=== PATIENT | male | born 1935 | race Caucasian/White ===

== ENCOUNTER 2017-03-29 23:10 | Observation (INO) | payer OTHER ==
[~2017-03-29] VITALS: Ht 180.3 cm; Wt 92.0 kg
[2017-03-29 23:19] VITALS: BP 190/78; PULSE 63; RESP 20; O2SAT 97
[2017-03-29] MEDS ORDERED: AMLO5TAB2 PO (23:28)
[2017-03-29] MEDS ORDERED: VALS320T6 PO (23:28)
[2017-03-29] MEDS ORDERED: CLON0.1T PO (23:29)
[2017-03-29] MEDS ORDERED: ATOR40TA16 PO (23:29)
[2017-03-29] MEDS ORDERED: OMEP20TA93 PO (23:29)
[2017-03-29] MEDS ORDERED: SODIUM CHLORIDE 0.9% FLUSH 10 ML FLUSH IVF PRN (23:30)
[2017-03-29] MEDS ORDERED: ALUMINUM/MAGNESIUM/SIMETH 30 ML CUP PO ONE (23:30)
[2017-03-29] MEDS ORDERED: LIDOCAINE VISCOUS 2% SOLN 15 ML UDC PO ONE (23:30)
[2017-03-29] MEDS ORDERED: FAMOTIDINE 20 MG/2 ML VIAL IV PUSH ONE (23:30)
[2017-03-29] MEDS ORDERED: ONDANSETRON HCL 4 MG/2 ML VIAL IVP ONE (23:30)
[2017-03-29] MEDS ORDERED: MORPHINE SULFATE 4 MG/ML INJ IV PUSH ONE (23:30)
[2017-03-29 23:55] VITALS: BP 169/70
[2017-03-29 23:56] VITALS: O2SAT 98
--- NOTE | 2017-03-29 23:57 | RADRPT ---
EXAM DATE/TIME: 03/29/2017 23:35 [facility] COMPARISON: No previous studies available for comparison. INDICATIONS : Shortness of breath, chest pain to medial chest. MEDICAL HISTORY : None. SURGICAL HISTORY : None. ENCOUNTER: Initial ACUITY: 1 day PAIN SCORE: 0/10 LOCATION: Bilateral chest FINDINGS: A single view of the chest demonstrates the lungs to be symmetrically aerated without evidence of mas s, infiltrate or effusion. The cardiomediastinal contours are unremarkable. Osseous structures are intact. CONCLUSION: Normal examination. Rick Cabrales MD on March 29, 2017 at 23:55 Board Certified Radiologist. This report was verified electronically.
[2017-03-30] VITALS (9 sets, daily range): BP systolic 107–166; BP diastolic 54–79; PULSE 64–82; RESP 18–20; TEMP 97.3–99; O2SAT 93–98
[2017-03-30 00:04] LABS: AUTOMATED NEUTROPHIL # 14.5 TH/MM3 (1.8-7.7); BASOPHIL # 0.1 TH/MM3 (0-0.2); BASOPHIL % 0.6 % (0.0-2.0); EOSINOPHIL # 1.8 TH/MM3 (0-0.4); EOSINOPHIL % 8.7 % (0.0-4.0); HEMATOCRIT 42.5 % (39.0-51.0); HEMO FLAGS DIFF FINAL; LYMPH % 8.9 % (9.0-44.0); LYMPHOCYTE # 1.8 TH/MM3 (1.0-4.8); MEAN CELL VOLUME 90.1 FL (80.0-100.0); MEAN CORPUSCULAR HEMOGLOBIN 30.7 PG (27.0-34.0); MONO % 10.6 % (0.0-8.0); NEUT % 71.2 % (16.0-70.0); PLATELET COUNT 193 TH/MM3 (150-450); RED BLOOD COUNT 4.71 MIL/MM3 (4.50-5.90); RED CELL DISTRIBUTION WIDTH 13.7 % (11.6-17.2); WHITE BLOOD COUNT 20.3 TH/MM3 (4.0-11.0)
[2017-03-30 00:16] LABS: APTT (PATIENT) 28.2 SEC (24.3-30.1); PROTHROMBIN TIME - PATIENT 11.2 SEC (9.8-11.6)
[2017-03-30 00:18] LABS: ALT (GPT) 20 U/L (12-78); ANION GAP 10 MEQ/L (5-15); AST (GOT) 15 U/L (15-37); BLOOD UREA NITROGEN 23 MG/DL (7-18); CHLORIDE 103 MEQ/L (98-107); GLOMERULAR FILTRATION RATE 46 ML/MIN (>89); POTASSIUM 4.1 MEQ/L (3.5-5.1); SODIUM (NA) 137 MEQ/L (136-145)
[2017-03-30 00:22] LABS: ALKALINE PHOSPHATASE 92 U/L (45-117); CREATINE KINASE 55 U/L (39-308); TOTAL BILIRUBIN ADULT 1.3 MG/DL (0.2-1.0)
[2017-03-30] MEDS ORDERED: MORPHINE SULFATE 4 MG/ML INJ IV PUSH ONE (00:45)
[2017-03-30] MEDS ORDERED: IOHEXOL 350 MG/ML 10 ML VIAL (for RAD DIAG) IVCONTRAST ONE (01:05)
--- NOTE | 2017-03-30 01:37 | RADRPT ---
EXAM DATE/TIME: 03/30/2017 01:03 [facility] COMPARISON: No previous studies available for comparison. INDICATIONS : Abdomen pain. IV CONTRAST: 95 cc Omnipaque 300 (iohexol) IV ORAL CONTRAST: No oral contrast ingested. RADIATION DOSE: 16.16 CTDIvol (mGy) MEDICAL HISTORY : Cardiovascular disease. Hypertension. Carcinoma, prostate. SURGICAL HISTORY : Carotid stent. Appendectomy.Prostatectomy. ENCOUNTER: Initial ACUITY: 1 day PAIN SCALE: 10/10 LOCATION: abdomen TECHNIQUE: Volumetric scanning of the abdomen and pelvis was performed. Using automated exposure control and ad justment of the mA and/or kV according to patient size, radiation dose was kept as low as reasonably achievable to obtain optimal diagnostic quality images. DICOM format image data is available electro nically for review and comparison. FINDINGS: LOWER LUNGS: There is interstitial disease of the lower lungs. There is a calcified granuloma in the right base. LIVER: Homogeneous density. There are few calcified granulomas seen in the liver. There is no dilation of t he biliary tree. There are several focal densities within the gallbladder concerning for possible gal lstones. SPLEEN: There are several small calcified granulomas. PANCREAS: Within normal limits. KIDNEYS: Normal in size and shape. There is no mass, stone or hydronephrosis. ADRENAL GLANDS: There is a 1.9 cm mass seen at the lateral limb of the left adrenal gland. The right adrenal gland is normal. VASCULAR: There is a 3.7 cm infrarenal focal abdominal aortic aneurysm. Atherosclerotic calcifications are seen throughout. BOWEL/MESENTERY: Colonic diverticula are seen throughout. Significant inflammatory change is not clearly seen. There i s thickening in the sigmoid region which may be related to hypertrophy. ABDOMINAL WALL: Within normal limits. RETROPERITONEUM: There is no lymphadenopathy. The patient is status post pelvic lymph node resection. BLADDER: No wall thickening or mass. REPRODUCTIVE: The patient is status post prostatectomy. INGUINAL: There is no lymphadenopathy or hernia. MUSCULOSKELETAL: There is degenerative change in the lumbar spine. CONCLUSION: 1. No acute abnormality seen. 2. Numerous colonic diverticula. There is some thickening in the sigmoid region which may be secondar y to hypertrophy. Surrounding inflammatory changes not seen. 3. Status post prostatectomy. 4. Multiple focal areas of density within the gallbladder concerning for possible gallstones. 5. 1.9 cm left adrenal gland mass. This is nonspecific. Statistically, it likely representing an mel dian. 6. 3.7 cm focal abdominal aortic aneurysm. Rick Cabrales MD on March 30, 2017 at 1:23 Board Certified Radiologist. This report was verified electronically.
--- NOTE | 2017-03-30 02:58 | RADRPT ---
EXAM DATE/TIME: 03/30/2017 02:21 [facility] COMPARISON: CT ABDOMEN & PELVIS W CONTRAST, March 30, 2017, 1:03. INDICATIONS : Right upper quadrant pain. MEDICAL HISTORY : Hypercholesterolemia. Hypertension. Gastroesophageal reflux disease. hearing aids. SURGICAL HISTORY : Appendectomy. Cardiac stent. Prostatectomy. ENCOUNTER: Initial ACUITY: 1 day PAIN SCORE: 2/10 LOCATION: Right upper quadrant MEASUREMENTS: LIVER: 18.7 cm length COMMON DUCT: 5 mm RIGHT KIDNEY: 11.3 x 4.8 x 5.9 cm FINDINGS: LIVER: Normal echotexture without focal lesion or ductal dilatation. COMMON DUCT: No intraluminal mass or stone visualized. GALLBLADDER: Multiple gallstones are seen measuring up to 0.8 cm. Gallbladder wall is borderline thickened. The te chnologist reports a negative sonographic Gregory's sign. PANCREAS: The visualized portions are within normal limits. RIGHT KIDNEY: No evidence of hydronephrosis, stone, or mass. CONCLUSION: Cholelithiasis. Gallbladder wall is borderline thickened. This can be correlated with any clinical or laboratory findings of cholecystitis. Rick Cabrales MD on March 30, 2017 at 2:54 Board Certified Radiologist. This report was verified electronically.
--- NOTE | 2017-03-30 03:13 | PD ---
HPI Chief Complaint: Abdominal Pain Time Seen by Provider: 23:27 Travel History International Travel<30 days: No Contact w/Intl Traveler<30days: No Traveled to known affect area: No History of Present Illness HPI Patient is a 81-year-old male comes in complaining of chest pain. Says the pain is substernal and in the epigastric area. He says he has been belching a lot. The pain came on this evening. He says that he feels like he cannot take a deep breath. He said some nausea but no vomiting. He does have history of GERD, but says that this feels different. He was given aspirin and nitroglycerin by EMS. He says the nitroglycerin did not help. He denies fever or chills. He says the pain does not radiate. He does have history of 2 stents in the past. PFSH Past Medical History Cancer: Yes (prostate removal ) High Cholesterol: Yes Diminished Hearing: Yes (hearing aids ) Gastrointestinal Disorders: Yes (gerd) Hypertension: Yes Tetanus Vaccination: < 5 Years Influenza Vaccination: No Past Surgical History Appendectomy: Yes (1955) Cardiac Surgery: Yes (stent 2003) Social History Alcohol Use: No Tobacco Use: No Substance Use: No Allergies-Medications (Allergen,Severity, Reaction): Coded Allergies: No Known Allergies (Verified Allergy, Unknown, 03/29/17) Reported Meds & Prescriptions Reported Meds & Active Scripts Active Reported Atorvastatin (Atorvastatin Calcium) 40 Mg Tab 40 Mg PO HS Clonidine (Clonidine HCl) 0.1 Mg Tab 0.1 Mg PO BID Omeprazole 20 Mg Tab 20 Mg PO DAILY Valsartan-Hydrochlorothiazide 320-25 Mg Tab 1 Tab PO DAILY Amlodipine (Amlodipine Besylate) 5 Mg Tab 5 Mg PO DAILY Review of Systems Except as stated in HPI: all other systems reviewed are Neg General / Constitutional: No: Fever, Chills HENT: No: Headaches, Lightheadedness Cardiovascular: Positive: Chest Pain or Discomfort Respiratory: Positive: Shortness of Breath Gastrointestinal: Positive: Nausea, Abdominal Pain Musculoskeletal: No: Myalgias, Edema Skin: No Rash, No Change in Pigmentation Neurologic: No: Weakness, Dizziness Physical Exam Narrative GENERAL: Awake and alert, in no acute distress. SKIN: Focused skin assessment warm/dry. HEAD: Atraumatic. Normocephalic. EYES: Pupils equal and round. No scleral icterus. ENT: Mucous membranes pink and moist. NECK: Trachea midline. No JVD. CARDIOVASCULAR: Regular rate and rhythm. No murmur appreciated. RESPIRATORY: No accessory muscle use. Clear to auscultation. Breath sounds equal bilaterally. GASTROINTESTINAL: Abdomen soft, nondistended. Tender to palpation of the mid epigastric area. No rebound or guarding. MUSCULOSKELETAL: No obvious deformities. No clubbing. No cyanosis. No edema. NEUROLOGICAL: Awake and alert. No obvious cranial nerve deficits. Motor grossly within normal limits. Normal speech. PSYCHIATRIC: Appropriate mood and affect; insight and judgment normal. Data Data Last Documented VS Vital Signs Date Time Temp Pulse Resp B/P (MAP) Pulse Ox O2 Delivery O2 Flow Rate FiO2 03/30/17 01:29 166/79 (108) 157/70 (99) 03/29/17 23:56 98 Nasal Cannula 2.00 03/29/17 23:19 63 20 Orders Orders Ckmb (Isoenzyme) Profile (03/29/17 23:27) Complete Blood Count With Diff (03/29/17 23:27) Comprehensive Metabolic Panel (03/29/17 23:27) Prothrombin Time / Inr (Pt) (03/29/17 23:27) Act Partial Throm Time (Ptt) (03/29/17 23:27) Troponin I (03/29/17 23:27) Lipase (03/29/17 23:27) Chest, Single Ap (03/29/17 23:27) Ecg Monitoring (03/29/17 23:27) Bilateral Bp Monitoring (03/29/17 23:27) Iv Access Insert/Monitor (03/29/17 23:27) Oximetry (03/29/17 23:27) Oxygen Administration (03/29/17 23:27) Sodium Chloride 0.9% Flush (Ns Flush) (03/29/17 23:30) Morphine Inj (Morphine Inj) (03/29/17 23:30) Ondansetron Inj (Zofran Inj) (03/29/17 23:30) Famotidine Inj (Pepcid Inj) (03/29/17 23:30) Al-Mag Hy-Si 40-40-4 Mg/Ml Liq (Mag-Al P (03/29/17 23:30) Lidocaine 2% Viscous (Xylocaine 2% Visco (03/29/17 23:30) Ct Abd/Pel W Iv Contrast(Rout) (03/30/17 ) Morphine Inj (Morphine Inj) (03/30/17 00:45) Iohexol 350 Inj (Omnipaque 350 Inj) (03/30/17 01:05) Us Abdomen Gallbladder (03/30/17 ) Al-Mag Hy-Si 40-40-4 Mg/Ml Liq (Mag-Al P (03/30/17 03:15) Lidocaine 2% Viscous (Xylocaine 2% Visco (03/30/17 03:15) Activity Bed Rest With Brp (03/30/17 03:09) Vital Signs (Adult) Q4H (03/30/17 03:09) Cardiac Rhythm .As Directed (03/30/17 03:09) Notify Dr: Other .PRN (03/30/17 03:09) Notify Dr. Parameters (03/30/17 03:09) Resp Oxygen Nasal Cannula (03/30/17 ) Diet Heart Healthy (03/30/17 Breakfast) Ckmb (Isoenzyme) Profile (03/30/17 03:09) Ckmb (Isoenzyme) Profile (03/30/17 06:09) Troponin I (03/30/17 03:09) Troponin I (03/30/17 06:09) Electrocardiogram (03/30/17 03:09) Electrocardiogram (03/30/17 06:09) ^ Obtain (03/30/17 03:09) Sodium Chloride 0.9% Flush (Ns Flush) (03/30/17 03:15) Sodium Chloride 0.9% Flush (Ns Flush) (03/30/17 09:00) Famotidine (Pepcid) (03/30/17 09:00) Shingle Trimmer / Telemetry [id number].[id number] (03/30/17 03:09) Admit Order (Ed Use Only) (03/30/17 ) Labs Laboratory Tests Test 03/29/17 23:45 White Blood Count 20.3 TH/MM3 Red Blood Count 4.71 MIL/MM3 Hemoglobin 14.5 GM/DL Hematocrit 42.5 % Mean Corpuscular Volume 90.1 FL Mean Corpuscular Hemoglobin 30.7 PG Mean Corpuscular Hemoglobin Concent 34.0 % Red Cell Distribution Width 13.7 % Platelet Count 193 TH/MM3 Mean Platelet Volume 9.5 FL Neutrophils (%) (Auto) 71.2 % Lymphocytes (%) (Auto) 8.9 % Monocytes (%) (Auto) 10.6 % Eosinophils (%) (Auto) 8.7 % Basophils (%) (Auto) 0.6 % Neutrophils # (Auto) 14.5 TH/MM3 Lymphocytes # (Auto) 1.8 TH/MM3 Monocytes # (Auto) 2.1 TH/MM3 Eosinophils # (Auto) 1.8 TH/MM3 Basophils # (Auto) 0.1 TH/MM3 CBC Comment DIFF FINAL Differential Comment Prothrombin Time 11.2 SEC Prothromb Time International Ratio 1.0 RATIO Activated Partial Thromboplast Time 28.2 SEC Blood Urea Nitrogen 23 MG/DL Creatinine 1.46 MG/DL Random Glucose 176 MG/DL Total Protein 7.0 GM/DL Albumin 3.9 GM/DL Calcium Level 8.5 MG/DL Alkaline Phosphatase 92 U/L Aspartate Amino Transf (AST/SGOT) 15 U/L Alanine Aminotransferase (ALT/SGPT) 20 U/L Total Bilirubin 1.3 MG/DL Sodium Level 137 MEQ/L Potassium Level 4.1 MEQ/L Chloride Level 103 MEQ/L Carbon Dioxide Level 24.0 MEQ/L Anion Gap 10 MEQ/L Estimat Glomerular Filtration Rate 46 ML/MIN Total Creatine Kinase 55 U/L Troponin I LESS THAN 0.02 NG/ML Lipase 128 U/L MDM Medical Decision Making Medical Screen Exam Complete: Yes Emergency Medical Condition: Yes Interpretation(s) ECG shows sinus bradycardia at 57, no ST elevation or depression, normal intervals Differential Diagnosis Gastritis versus ACS versus NSTEMI versus STEMI Narrative Course Patient is an 81-year-old male comes in complaining of chest pain. Exam shows some mild epigastric tenderness. IV established, labs sent. Labs show an elevated white blood cell count to 20. CT abdomen and pelvis performed shows gallstones. Ultrasound of the gallbladder also shows gallstones, unlikely cholecystitis. Patient was given morphine, IV fluids. Given a GI cocktail. Based on patient's cardiac history and description that this pain is different than his GERD pain, believe patient will benefit from an ACS workup. He'll be placed in the chest pain center. Diagnosis Primary Impression: Chest pain Qualified Codes: R07.9 - Chest pain, unspecified Admitting Information Admitting Physician Requests: Observation Lroene Mendosa MD Mar 30, 2017 03:13
[2017-03-30] MEDS ORDERED: LIDOCAINE VISCOUS 2% SOLN 15 ML UDC PO ONE (03:15)
[2017-03-30] MEDS ORDERED: SODIUM CHLORIDE 0.9% FLUSH 10 ML FLUSH IV FLUSH PRN ×2 (03:15→08:15)
[2017-03-30] MEDS ORDERED: ALUMINUM/MAGNESIUM/SIMETH 30 ML CUP PO ONE (03:15)
[2017-03-30 05:35] LABS: CREATINE KINASE 54 U/L (39-308)
--- NOTE | 2017-03-30 08:11 | HHI.HP ---
HPI Primary Care Physician Rick Davenport M.D. Chief Complaint Epigastric pain History of Present Illness 81-year-old male with history of hypertension, hyperlipidemia, and GERD presents to emergency room for further evaluation epigastric discomfort. Onset last evening 6 PM. Location epigastric area described as a "stabbing pain. Severity 10/10. No radiation initially, but states early this morning pain began to radiated to right upper quadrant. Associated symptoms diaphoresis and hurting to take a deep breath. Reports shallow breathing due to discomfort around breathing. Denied nausea, vomiting, or diarrhea. No known precipitating or relieving factors. Currently pain rated 1-2/10. Denies similar pain in the past. Last meal prior to discomfort 1630 which included chili, crackers, and coffee. Review of Systems General: No fatigue,weakness, fever, chills, or recent illness. Has been in his general state of health. HEENT: No headache or dysphasia CV: No CP, pressure, palpitations, or dizziness. History of times one cardiac stent. Denies cardiac pain prior to stent placement stating blockage was found on nuclear stress test. RESP: No SOB, cough, wheeze, or recent URI. When taking a deep breath epigastric pain made worse. GI: No nausea, vomiting, bowel changes, diarrhea, constipation, pain, or distention. No unintentional weight gain or weight loss. Right upper quadrant tender with palpation. : No dysuria EXT: No lower leg edema MS: No discomfort or change in ROM NEURO: No change in memory, difficulty with balance, LOC, motor/sensory deficits PSYCH: No anxiety or depression. SKIN: No rashes, no concerning lesions Past Family Social History Allergies: Coded Allergies: No Known Allergies (Verified Allergy, Unknown, 03/29/17) Past Medical History Hypertension, hyperlipidemia, GERD, x1 cardiac stent, prostate cancer (treated surgical, no radiation required) Past Surgical History Prostatectomy (early ), appendectomy (1954) Reported Medications Reported Meds & Active Scripts Active Reported Atorvastatin (Atorvastatin Calcium) 40 Mg Tab 40 Mg PO HS Clonidine (Clonidine HCl) 0.1 Mg Tab 0.1 Mg PO PRN (Used only once-instructed to take for sbp greater than 160) Omeprazole 20 Mg Tab 20 Mg PO DAILY Valsartan-Hydrochlorothiazide 320-25 Mg Tab 1 Tab PO DAILY Amlodipine (Amlodipine Besylate) 5 Mg Tab 5 Mg PO DAILY Active Ordered Medications Current Medications Medications (Trade) Dose Ordered Sig/Tenzin Route Start Time Stop Time Status Last Admin (NS Flush) 2 ml UNSCH PRN IV FLUSH 03/30/17 03:15 (NS Flush) 2 ml BID IV FLUSH 03/30/17 09:00 (Pepcid) 20 mg BID PO 03/30/17 09:00 (Flu (Quadrivalent) Vaccine Inj) 0.5 ml ONCE ONCE IM 03/31/17 10:00 03/31/17 10:01 Social History Known Johnny artery disease, hypertension and hyperlipidemia. No known diabetes. Quit smoking 25 years ago. Denies any alcohol. Endorses an active lifestyle walking 1 mile/twice daily. Also hikes 5-8 miles daily in the fall when traveling to [place]. Past cardiac testing Nuclear stress test 5 years ago. Patient equity research associate is Dr. Sewell. Seen Dr. Sewell January, completed bilateral carotid ultrasound, aorta and cardiac ultrasound all reported to be normal. x1 cardiac stent placed reportedly after an abnormal cardiac stress test. Physical Exam Vital Signs Vital Signs Date Time Temp Pulse Resp B/P (MAP) Pulse Ox O2 Delivery O2 Flow Rate FiO2 03/30/17 07:32 99.0 77 18 153/68 (96) 95 03/30/17 06:10 98.7 82 18 158/69 (98) 94 03/30/17 04:09 03/30/17 03:46 98 03/30/17 01:29 166/79 (108) 157/70 (99) 03/29/17 23:56 98 Nasal Cannula 2.00 03/29/17 23:55 169/70 (103) 03/29/17 23:55 98 Nasal Cannula 2.00 03/29/17 23:19 63 20 190/78 (115) 97 Room Air Physical Exam GENERAL: Alert WN, WD, NAD, pleasant, male HEAD: NC, AT EYES: Sclera clear, conjunctiva without injection, pupils equal and round ENT: Mucous membranes pink and moist CV: RRR, 2/6 systolic murmur, no rub, gallop, or JVD, S1-S2 no S3-S4. RESP: Clear lungs throughout bilateral, no crackles, wheeze, rhonchi, symmetrical chest rise, nonlabored, able to speak in full sentences ABD: right upper quad tender with palpation with some guarding of area. Epigastric area nontender with palpation. Soft, ND, positive bowel tones EXT: Pulses +24, no dependent edema MS: Normal tone 4 extremities, no obvious deformities, full range of motion NEURO: CN II through CN XII grossly intact, motor strength 5/5 PSYCH: A+O 3, pleasant affect, appropriate speech, mood, insight and judgment SKIN: Normal turgor, normal texture, no lesions, no rashes, brisk cap refill, even hair distribution Laboratory Laboratory Tests Test 03/29/17 23:45 03/30/17 04:40 03/30/17 07:30 White Blood Count 20.3 Red Blood Count 4.71 Hemoglobin 14.5 Hematocrit 42.5 Mean Corpuscular Volume 90.1 Mean Corpuscular Hemoglobin 30.7 Mean Corpuscular Hemoglobin Concent 34.0 Red Cell Distribution Width 13.7 Platelet Count 193 Mean Platelet Volume 9.5 Neutrophils (%) (Auto) 71.2 Lymphocytes (%) (Auto) 8.9 Monocytes (%) (Auto) 10.6 Eosinophils (%) (Auto) 8.7 Basophils (%) (Auto) 0.6 Neutrophils # (Auto) 14.5 Lymphocytes # (Auto) 1.8 Monocytes # (Auto) 2.1 Eosinophils # (Auto) 1.8 Basophils # (Auto) 0.1 CBC Comment DIFF FINAL Differential Comment Prothrombin Time 11.2 Prothromb Time International Ratio 1.0 Activated Partial Thromboplast Time 28.2 Blood Urea Nitrogen 23 Creatinine 1.46 Random Glucose 176 Total Protein 7.0 Albumin 3.9 Calcium Level 8.5 Alkaline Phosphatase 92 Aspartate Amino Transf (AST/SGOT) 15 Alanine Aminotransferase (ALT/SGPT) 20 Total Bilirubin 1.3 Sodium Level 137 Potassium Level 4.1 Chloride Level 103 Carbon Dioxide Level 24.0 Anion Gap 10 Estimat Glomerular Filtration Rate 46 Total Creatine Kinase 55 54 Troponin I LESS THAN 0.02 LESS THAN 0.02 Lipase 128 Result Diagram: 03/29/17234403/29/172344 Imaging Reading interpreted by radiologist. Chest xray-Normal examination. CT abd/pelvis-Conclusion: 1. No acute abnormality seen. 2. Numerous colonic diverticula. There is some thickening in the sigmoid region which may be secondary to hypertrophy. Surrounding inflammatory changes not seen. 3. Statu post prostatectomy. 4. Multiple focal areas of density within the gallbladder concerning for possible gallstones. 5. 1.9cm left adrenal mass. This is nonspecific. Statistically, it is likely representing an adenoma. 6. 3.7cm focal abdominal aortic aneurysm. Gallbladder ultrasound-Cholelithiasis. Gallbladder wall borderline thickened. Could be correlated with any clinical or lab of cholecystitis. Course EKG NSB, normal axis, no st t segment changes Caprini VTE Risk Assessment Caprini VTE Risk Assessment: Mod/High Risk (score >= 2) Caprini Risk Assessment Model Point Value = 1 Point Value = 2 Point Value = 3 Point Value = 5 Age 41-60 Minor surgery BMI > 25 kg/m2 Swollen legs Varicose veins or History of unexplained or recurrent spontaneous Oral contraceptives or hormone replacement Sepsis (< 1 month) Serious lung disease, including pneumonia (< 1 month) Abnormal pulmonary function Acute myocardial infarction Congestive heart failure (< 1 month) History of inflammatory bowel disease Medical patient at bed rest Age 61-74 Arthroscopic surgery Major open surgery (> 45 min) Laparoscopic surgery (> 45 min) Malignancy Confined to bed (> 72 hours) Immobilizing plaster cast Central venous access Age >= 75 History of VTE Family history of VTE Factor V Leiden Prothrombin [id number] Lupus anticoagulant Anticardiolipin antibodies Elevated serum homocysteine Heparin-induced thrombocytopenia Other congenital or acquired thrombophilia Stroke (< 1 month) Elective arthroplasty Hip, pelvis, or leg fracture Acute spinal cord injury (< 1 month) Prophylaxis Regimen Total Risk Factor Score Risk Level Prophylaxis Regimen 0-1 Low Early ambulation 2 Moderate Order ONE of the following: *Sequential Compression Device (SCD) *Heparin 5000 units SQ BID 3-4 Higher Order ONE of the following medications: *Heparin 5000 units SQ TID *Enoxaparin/Lovenox 40 mg SQ daily (WT < 150 kg, CrCl > 30 mL/min) *Enoxaparin/Lovenox 30 mg SQ daily (WT < 150 kg, CrCl > 10-29 mL/min) *Enoxaparin/Lovenox 30 mg SQ BID (WT < 150 kg, CrCl > 30 mL/min) AND/OR *Sequential Compression Device (SCD) 5 or more Highest Order ONE of the following medications: *Heparin 5000 units SQ TID (Preferred with Epidurals) *Enoxaparin/Lovenox 40 mg SQ daily (WT < 150 kg, CrCl > 30 mL/min) *Enoxaparin/Lovenox 30 mg SQ daily (WT < 150 kg, CrCl > 10-29 mL/min) *Enoxaparin/Lovenox 30 mg SQ BID (WT < 150 kg, CrCl > 30 mL/min) AND *Sequential Compression Device (SCD) Assessment and Plan Assessment and Plan #1 Cholelithiasis/epigastric pain-admitted to chest pain center. Ruled out with 3 sets of EKGs, cardiac enzymes, and monitored overnight. Seen and evaluated by Dr. Erik Ying. Denies ever having any chest pain, only epigastric pain. Right upper quad tender with palpation. Dr. Ying recommends surgical consult to speak with patient regarding gallstones. No further cardiac testing required at this time. Discussed with patient plan of care will be determined by surgical physician recommendation. Patient agreeable to plan of care. #2 History of CAD-continue atorvastatin and amlodipine #3 Hypertension-continue to need to monitor, continue valsartan/HCTZ #4 GERD-continue omeprazole 14:45 Plans for laparoscopic cholecystomy this afternoon at 3pm. Consult hospitalist for medical management as requested by surgeon. Elaine Cantu Mar 30, 2017 08:10
[2017-03-30] MEDS ORDERED: NITROGLYCERIN 0.4 MG SL 25 TABS/BTL SL PRN (08:15)
[2017-03-30] MEDS ORDERED: ACETAMINOPHEN 500 MG CPLT PO PRN (08:15)
[2017-03-30] MEDS ORDERED: ONDANSETRON HCL 4 MG/2 ML VIAL IV PUSH PRN (08:15)
[2017-03-30 08:39] LABS: CREATINE KINASE 37 U/L (39-308)
[2017-03-30] MEDS ORDERED: FAMOTIDINE 20 MG TAB PO SCH (09:00)
[2017-03-30] MEDS ORDERED: SODIUM CHLORIDE 0.9% FLUSH 10 ML FLUSH IV FLUSH SCH (09:00)
[2017-03-30] MEDS: PANTOPRAZOLE SOD 20 MG DELAYED RELEASE TAB PO SCH (09:00)
[2017-03-30] MEDS: HYDROCHLOROTHIAZIDE 25 MG TAB PO SCH (09:02)
[2017-03-30] MEDS: amLODIPine BESYLATE 5 MG TAB PO SCH (09:02)
[2017-03-30] MEDS: SODIUM CHLORIDE 0.9% FLUSH 10 ML FLUSH IV FLUSH SCH ×2 (09:03→20:24)
[2017-03-30] MEDS: VALSARTAN 160 MG TAB PO SCH (09:03)
[2017-03-30] MEDS: ASPIRIN 325 MG TAB PO SCH (09:03)
--- NOTE | 2017-03-30 10:20 | PD.CONS ---
cc: Brandon Brock MD [facility] Service CONSULTATION NOTE FOR SURGICAL ATTENDING, DR. BRANDON BROCK General Surgery Consult Requested By Dr. Ying Reason for Consult Evaluation of cholelithiasis Primary Care Physician Rick Davenport M.D. History of Present Illness This is an 81-year-old male with a past medical history of GERD, hypercholesterolemia and hypertension. The patient was watching football on television yesterday afternoon when he developed a sudden onset of substernal and epigastric chest pain. The patient states that he took his blood pressure which showed a systolic blood pressure in the 160s. He has been instructed by his physician to take 1 tablet of clonidine when this occurs. He took the clonidine and rechecked his blood pressure about an hour and half later. The patient's systolic blood pressure was now in the 180s. He had no resolution of his chest pain and decided to call 911 and his son. The patient was brought to the emergency department and given a GI cocktail. The patient's chest pain resolved but he noticed he had a right upper quadrant abdominal pain. He reports this is the worst pain he has ever had. A CT abdomen and pelvis was obtained which shows cholelithiasis. A gallbladder ultrasound was obtained which shows cholelithiasis and gallbladder wall thickening. The patient does have an elevated white blood cell count of 20.3. The patient's total bilirubin is also mildly elevated at 1.3. A General Surgery consultation has been requested for evaluation of cholelithiasis. Review of Systems Constitutional: DENIES: Fatigue, Change in appetite Endocrine: DENIES: Polydipsia, Polyuria, Polyphagia Eyes: DENIES: Diplopia Ears, nose, mouth, throat: DENIES: Hearing loss Respiratory: DENIES: Cough Cardiovascular: COMPLAINS OF: Chest pain, Dyspnea on Exertion Gastrointestinal: COMPLAINS OF: Abdominal pain, DENIES: Nausea, Vomiting Genitourinary: DENIES: Urgency Musculoskeletal: DENIES: Joint pain Integumentary: DENIES: Abnormal pigmentation Hematologic/lymphatic: DENIES: Bruising Immunologic/allergic: DENIES: Eczema Neurologic: DENIES: Abnormal gait, Headache Psychiatric: DENIES: Confusion, Mood changes, Depression Past Family Social History Past Medical History GERD Hypercholesterolemia Hypertension Prostate cancer Past Surgical History Open appendectomy in the 1950s Cardiac stent placement in 2003 Prostate removal Reported Medications Atorvastin Clonidine Amlodipine Valsartan-hydrochlorothiazide Omeprazole Allergies: Coded Allergies: No Known Allergies (Verified Allergy, Unknown, 03/29/17) Active Ordered Medications Current Medications Medications (Trade) Dose Ordered Sig/Tenzin Route Start Time Stop Time Status Last Admin (Pepcid) 20 mg BID PO 03/30/17 09:00 03/30/17 09:02 (Flu (Quadrivalent) Vaccine Inj) 0.5 ml ONCE ONCE IM 03/31/17 10:00 03/31/17 10:01 (NS Flush) 2 ml UNSCH PRN IV FLUSH 03/30/17 08:15 (NS Flush) 2 ml BID IV FLUSH 03/30/17 09:00 03/30/17 09:03 (Tylenol) 500 mg Q4H PRN PO 03/30/17 08:15 (Zofran Inj) 4 mg Q6H PRN IV PUSH 03/30/17 08:15 (Nitrostat Sl) 0.4 mg Q5M PRN SL 03/30/17 08:15 (Aspirin) 325 mg DAILY PO 03/30/17 09:00 03/30/17 09:03 (Norvasc) 5 mg DAILY PO 03/30/17 09:00 03/30/17 09:02 (Lipitor) 40 mg HS PO 03/30/17 21:00 (Protonix) 20 mg DAILY PO 03/30/17 09:00 03/30/17 09:00 (Diovan) 320 mg DAILY PO 03/30/17 09:00 03/30/17 09:03 (Hydrodiuril) 25 mg DAILY PO 03/30/17 09:00 03/30/17 09:02 Family History Noncontributory Social History Denies tobacco Denies EtOH use Denies illicit drug use Works part-time at [employer]. Physical Exam Vital Signs Vital Signs Date Time Temp Pulse Resp B/P (MAP) Pulse Ox O2 Delivery O2 Flow Rate FiO2 03/30/17 08:36 96 21 03/30/17 07:32 99.0 77 18 153/68 (96) 95 03/30/17 06:10 98.7 82 18 158/69 (98) 94 03/30/17 04:09 03/30/17 03:46 98 03/30/17 01:29 166/79 (108) 157/70 (99) 03/29/17 23:56 98 Nasal Cannula 2.00 03/29/17 23:55 169/70 (103) 03/29/17 23:55 98 Nasal Cannula 2.00 03/29/17 23:19 63 20 190/78 (115) 97 Room Air Physical Exam GENERAL: Pleasant 81 year old male resting in bed in no acute distress. SKIN: Warm and dry. HEAD: Atraumatic. Normocephalic. EYES: Pupils equal and round. No scleral icterus. No injection or drainage. ENT: No nasal bleeding or discharge. Mucous membranes pink and moist. NECK: Trachea midline. CARDIOVASCULAR: Regular rate and rhythm. RESPIRATORY: No accessory muscle use. Clear to auscultation. Breath sounds equal bilaterally. GASTROINTESTINAL: Abdomen soft, nondistended. RLQ scar and midline abdominal scar well healed. RUQ tenderness with palpation. MUSCULOSKELETAL: Extremities without clubbing, cyanosis, or edema. No obvious deformities. NEUROLOGICAL: Awake and alert. No obvious cranial nerve deficits. Motor grossly within normal limits. Five out of 5 muscle strength in the arms and legs. Normal speech. PSYCHIATRIC: Appropriate mood and affect; insight and judgment normal. Laboratory Laboratory Tests Test 03/29/17 23:45 03/30/17 04:40 03/30/17 07:30 White Blood Count 20.3 Red Blood Count 4.71 Hemoglobin 14.5 Hematocrit 42.5 Mean Corpuscular Volume 90.1 Mean Corpuscular Hemoglobin 30.7 Mean Corpuscular Hemoglobin Concent 34.0 Red Cell Distribution Width 13.7 Platelet Count 193 Mean Platelet Volume 9.5 Neutrophils (%) (Auto) 71.2 Lymphocytes (%) (Auto) 8.9 Monocytes (%) (Auto) 10.6 Eosinophils (%) (Auto) 8.7 Basophils (%) (Auto) 0.6 Neutrophils # (Auto) 14.5 Lymphocytes # (Auto) 1.8 Monocytes # (Auto) 2.1 Eosinophils # (Auto) 1.8 Basophils # (Auto) 0.1 CBC Comment DIFF FINAL Differential Comment Prothrombin Time 11.2 Prothromb Time International Ratio 1.0 Activated Partial Thromboplast Time 28.2 Blood Urea Nitrogen 23 Creatinine 1.46 Random Glucose 176 Total Protein 7.0 Albumin 3.9 Calcium Level 8.5 Alkaline Phosphatase 92 Aspartate Amino Transf (AST/SGOT) 15 Alanine Aminotransferase (ALT/SGPT) 20 Total Bilirubin 1.3 Sodium Level 137 Potassium Level 4.1 Chloride Level 103 Carbon Dioxide Level 24.0 Anion Gap 10 Estimat Glomerular Filtration Rate 46 Total Creatine Kinase 55 54 37 Troponin I LESS THAN 0.02 LESS THAN 0.02 LESS THAN 0.02 Lipase 128 Result Diagram: 03/29/17 2345 03/29/17 2345 Imaging Last Impressions Gall Bladder Ultrasound 03/30/17 0000 Signed Impressions: Service Date/Time: Thursday, March 30, 2017 02:21 - CONCLUSION: Cholelithiasis. Gallbladder wall is borderline thickened. This can be correlated with any clinical or laboratory findings of cholecystitis. Rick Cabrales MD Abdomen/Pelvis CT 03/30/17 0000 Signed Impressions: Service Date/Time: Thursday, March 30, 2017 01:03 - CONCLUSION: 1. No acute abnormality seen. 2. Numerous colonic diverticula. There is some thickening in the sigmoid region which may be secondary to hypertrophy. Surrounding inflammatory changes not seen. 3. Status post prostatectomy. 4. Multiple focal areas of density within the gallbladder concerning for possible gallstones. 5. 1.9 cm left adrenal gland mass. This is nonspecific. Statistically, it likely representing an adenoma. 6. 3.7 cm focal abdominal aortic aneurysm. Rick Cabrales MD Chest X-Ray 03/29/17 9520 Signed Impressions: Service Date/Time: Wednesday, March 29, 2017 23:35 - CONCLUSION: Normal examination. Rick Cabrales MD CT abdomen and pelvis--- cholelithiasis Gallbladder ultrasound--cholelithiasis and gallbladder wall thickening Assessment and Plan Problem List: (1) Acute cholecystitis ICD Codes: K81.0 - Acute cholecystitis Status: Acute (2) Right upper quadrant pain ICD Codes: R10.11 - Right upper quadrant pain Status: Acute (3) Abnormal findings on imaging of biliary tract ICD Codes: R93.2 - Abnormal findings on diagnostic imaging of liver and biliary tract Status: Acute (4) Coronary artery disease ICD Codes: I25.10 - Atherosclerotic heart disease of [place] coronary artery without angina pectoris Status: Chronic (5) Gastroesophageal reflux disease ICD Codes: K21.9 - Gastro-esophageal reflux disease without esophagitis Status: Chronic Assessment and Plan 81-year-old male with cholelithiasis; right upper quadrant abdominal pain -Repeat LFTs this AM -NPO -Plan for laparoscopic cholecystomy; possible open; possible intraoperative cholangiogram today with Dr. Calles -Obtain consents -Thank you for this consult; We will continue to follow Discussed Condition With Dr. Vinod Boles Attending Statement CONSULTATION NOTE FOR SURGICAL ATTENDING, DR. BRANDON BROCK Patient has right upper quadrant pain with abnormal imaging of the biliary tree history consistent with biliary colic Arrangements made for cholecystectomy I spoke to the OR to make arrangements My associated Dr. Benji Calles is available to proceed earlier with a cholecystectomy which I discussed with the patient and he understood I agree with above assessment and plan. The exam, history, and the medical decision-making described in the above note were completed with the assistance of the mid-level provider. I reviewed and agree with the findings presented. I attest that I had a [id number] encounter with the patient on the same day, and personally performed and documented my assessment and findings in the medical record. The following services were provided during this hospital visit: Chart data review, vital sign assessments/reviewing monitor data Review of consultations notes if present. Medication orders/review and/or management Ordering and/or reviewing lab tests Ordering and/or interpreting/reviewing x-rays and/or diagnostic studies Care of the patient and discussion of the patient with the care team Documentation time To help prompt me to consider important information that might be impacting today's encounter and assessment, information from prior notes written by myself or my colleagues may have been "brought forward/copy and pasted" into today's note. Lexi Anderson Mar 30, 2017 10:20 Brandon Brock MD Mar 30, 2017 19:27
[2017-03-30 10:28] LABS: INDIRECT BILIRUBIN 0.9 MG/DL (0.0-0.8); TOTAL BILIRUBIN ADULT 1.3 MG/DL (0.2-1.0)
[2017-03-30] MEDS: PIPERACIL-TAZO 3.375 GM PREMIX 50 ML IV SCH ×2 (11:48→20:24)
[2017-03-30] MEDS ORDERED: NEOSTIGMINE 3 MG/3 ML SYR IV ONE (12:00)
[2017-03-30] MEDS ORDERED: LIDOCAINE HCL 1% PF 5 ML SYRINGE OTHER ONE (12:00)
[2017-03-30] MEDS ORDERED: DEXAMETHASONE SOD PHOS 4 MG/ML VIAL IV ONE (12:00)
[2017-03-30] MEDS ORDERED: PROPOFOL 200 MG/20 ML AMP IV ONE (12:00)
[2017-03-30] MEDS ORDERED: LACTATED RINGER'S 1000 ML INJ 1,000 ML IV ONE (12:00)
[2017-03-30] MEDS ORDERED: ROCURONIUM INJ 50 MG/5 ML SYRINGE IV PUSH ONE (12:00)
[2017-03-30] MEDS ORDERED: ONDANSETRON HCL 4 MG/2 ML VIAL IV ONE (12:00)
[2017-03-30] MEDS ORDERED: GLYCOPYRROLATE 1 MG/5 ML SYRINGE IV PUSH ONE (12:00)
[2017-03-30] MEDS ORDERED: PILL SPLITTER OTHER PRN (12:30)
[2017-03-30] MEDS ORDERED: ACETAMINOPHEN 1000 MG/100 ML 100 ML IV ONE (13:34)
[2017-03-30] MEDS ORDERED: BUPIVACAINE/EPINEPHRINE 0.25% PF 30 ML VIAL ONE (14:05)
[2017-03-30] MEDS ORDERED: ENALAPRILAT 1.25 MG/ML VIAL IV PUSH PRN (14:15)
--- NOTE | 2017-03-30 14:15 | PD.CONS ---
HPI Service [facility] Consult Requested By Primary Care Physician Rick Davenport M.D. Diagnoses: History of Present Illness Mr. Boles is an 81-year-old male. He is here today secondary to an epigastric pain which onset yesterday around 5 PM. The pain was intense and sharp in nature. He was concerned that it was possibly his heart. He had a negative cardiac workup. In the meanwhile the pain has transitioned to the right upper quadrant. Imaging shows cholecystitis. Cholecystectomy planned for later today. At baseline this patient has a history of prostate cancer, hypertension, hyperlipidemia, gastroesophageal she'll reflux disease, and coronary artery disease. He had a stent in 2003. He does not have issues with chronic angina. I feel at this point given negative cardiac workup she is medically stable for surgery and medically cleared for surgery. Review of Systems Constitutional: COMPLAINS OF: Change in appetite, DENIES: Fatigue, Fever, Weight gain, Chills Eyes: DENIES: Blurred vision, Diplopia, Eye inflammation Ears, nose, mouth, throat: DENIES: Tinnitus, Hearing loss, Vertigo Respiratory: DENIES: Cough, Wheezing, Shortness of breath Cardiovascular: DENIES: Chest pain, Palpitations, Syncope Gastrointestinal: COMPLAINS OF: Abdominal pain, DENIES: Black stools, Bloody stools Musculoskeletal: DENIES: Joint pain, Muscle aches, Stiffness, Joint Swelling Integumentary: DENIES: Abnormal pigmentation, Nail changes, Pruritus, Rash Hematologic/lymphatic: DENIES: Bruising, Lymphadenopathy Immunologic/allergic: DENIES: Eczema, Urticaria Neurologic: DENIES: Abnormal gait, Headache, Paresthesias Psychiatric: DENIES: Anxiety, Confusion, Hallucinations Past Family Social History Allergies: Coded Allergies: No Known Allergies (Verified Allergy, Unknown, 03/29/17) Past Medical History Prostate cancer Hypertension Hyperlipidemia Coronary artery disease Gastroesophageal reflux disease Past Surgical History Appendectomy Prostate surgery in the year 1999 (approximately) Coronary artery stent in 2003 Reported Medications Reported Meds & Active Scripts Active Reported Atorvastatin (Atorvastatin Calcium) 40 Mg Tab 40 Mg PO HS Clonidine (Clonidine HCl) 0.1 Mg Tab 0.1 Mg PO BID Omeprazole 20 Mg Tab 20 Mg PO DAILY Valsartan-Hydrochlorothiazide 320-25 Mg Tab 1 Tab PO DAILY Amlodipine (Amlodipine Besylate) 5 Mg Tab 5 Mg PO DAILY Active Ordered Medications Administered Medications Medications (Trade) Dose Ordered Sig/Tenzin Route PRN Reason Start Time Stop Time Status Last Admin Dose Admin Sodium Chloride (NS Flush) 2 ml BID IV FLUSH 03/30/17 09:00 03/30/17 09:03 Aspirin (Aspirin) 325 mg DAILY PO 03/30/17 09:00 Future Hold 03/30/17 09:03 Amlodipine Besylate (Norvasc) 5 mg DAILY PO 03/30/17 09:00 03/30/17 09:02 Pantoprazole Sodium (Protonix) 20 mg DAILY PO 03/30/17 09:00 03/30/17 09:00 Valsartan (Diovan) 320 mg DAILY PO 03/30/17 09:00 03/30/17 09:03 Hydrochlorothiazide (Hydrodiuril) 25 mg DAILY PO 03/30/17 09:00 03/30/17 09:02 Piperacillin Sod/ Tazobactam Sod 50 ml @ 100 mls/hr Q8H IV 03/30/17 12:00 03/30/17 11:48 Family History Myocardial infarction in patient's father Unknown cancer and dementia and patient's mother Social History No illicit drug abuse history Patient has a previous history of smoking, quit 27 years ago Patient has a previous history of alcohol use, quit 27 years ago Physical Exam Vital Signs Vital Signs Date Time Temp Pulse Resp B/P (MAP) Pulse Ox O2 Delivery O2 Flow Rate FiO2 03/30/17 12:31 97.9 75 20 131/59 (83) 96 03/30/17 08:36 96 21 03/30/17 07:32 99.0 77 18 153/68 (96) 95 03/30/17 06:10 98.7 82 18 158/69 (98) 94 03/30/17 04:09 03/30/17 03:46 98 03/30/17 01:29 166/79 (108) 157/70 (99) 03/29/17 23:56 98 Nasal Cannula 2.00 03/29/17 23:55 169/70 (103) 03/29/17 23:55 98 Nasal Cannula 2.00 03/29/17 23:19 63 20 190/78 (115) 97 Room Air Physical Exam GENERAL: NAD, A&Ox3 HEAD: Normocephalic. NECK: Supple, trachea midline. No lymphadenopathy. EYES: No scleral icterus. No injection or drainage. CARDIOVASCULAR: Regular rate and rhythm without murmurs, gallops, or rubs. RESPIRATORY: Breath sounds equal bilaterally. No accessory muscle use. GASTROINTESTINAL: Abdomen soft, nondistended. Right upper quadrant abdominal tenderness MUSCULOSKELETAL: No cyanosis, or edema. SKIN: Warm and dry. NEURO: No focal neurological deficitis. Laboratory Laboratory Tests Test 03/29/17 23:45 03/30/17 04:40 03/30/17 07:30 White Blood Count 20.3 Red Blood Count 4.71 Hemoglobin 14.5 Hematocrit 42.5 Mean Corpuscular Volume 90.1 Mean Corpuscular Hemoglobin 30.7 Mean Corpuscular Hemoglobin Concent 34.0 Red Cell Distribution Width 13.7 Platelet Count 193 Mean Platelet Volume 9.5 Neutrophils (%) (Auto) 71.2 Lymphocytes (%) (Auto) 8.9 Monocytes (%) (Auto) 10.6 Eosinophils (%) (Auto) 8.7 Basophils (%) (Auto) 0.6 Neutrophils # (Auto) 14.5 Lymphocytes # (Auto) 1.8 Monocytes # (Auto) 2.1 Eosinophils # (Auto) 1.8 Basophils # (Auto) 0.1 CBC Comment DIFF FINAL Differential Comment Prothrombin Time 11.2 Prothromb Time International Ratio 1.0 Activated Partial Thromboplast Time 28.2 Blood Urea Nitrogen 23 Creatinine 1.46 Random Glucose 176 Total Protein 7.0 5.7 Albumin 3.9 2.9 Calcium Level 8.5 Alkaline Phosphatase 92 72 Aspartate Amino Transf (AST/SGOT) 15 12 Alanine Aminotransferase (ALT/SGPT) 20 15 Total Bilirubin 1.3 1.3 Sodium Level 137 Potassium Level 4.1 Chloride Level 103 Carbon Dioxide Level 24.0 Anion Gap 10 Estimat Glomerular Filtration Rate 46 Total Creatine Kinase 55 54 37 Troponin I LESS THAN 0.02 LESS THAN 0.02 LESS THAN 0.02 Lipase 128 Direct Bilirubin 0.4 Indirect Bilirubin 0.9 Result Diagram: 03/29/17234403/29/172344 Assessment and Plan Problem List: (1) Coronary artery disease ICD Code: I25.10 - Atherosclerotic heart disease of [place] coronary artery without angina pectoris (2) Hyperlipidemia ICD Code: E78.5 - Hyperlipidemia, unspecified (3) Gastroesophageal reflux disease ICD Code: K21.9 - Gastro-esophageal reflux disease without esophagitis (4) Hypertension ICD Code: I10 - Essential (primary) hypertension (5) Acute cholecystitis ICD Code: K81.0 - Acute cholecystitis (6) Chest pain ICD Code: R07.9 - Chest pain, unspecified Status: Acute Assessment and Plan Assessment and plan 81-year-old male admitted secondary to acute cholecystitis Acute cholecystitis Surgery following Plan for cholecystectomy Medically clear for surgery today Coronary artery disease Chest pain Chest pain was not cardiac related Chest pain appears related to cholecystitis No symptomatic disease at baseline Medically clear for surgery today History of prostate cancer Continue to monitor as an outpatient Hypertension Control at baseline Continue baseline treatments Follow blood pressures As needed IV enalapril for when patient is nothing by mouth Hyperlipidemia Continue baseline treatment Follows in outpatient Gastroesophageal reflux disease Continue baseline treatment with PPI DVT prophylaxis SCDs Problem Qualifiers (1) Chest pain: Qualified Codes: R07.9 - Chest pain, unspecified Tee Gates MD Mar 30, 2017 14:15
[2017-03-30] MEDS ORDERED: LACTATED RINGER'S 1000 ML IV PRN (14:30)
[2017-03-30] MEDS ORDERED: METOPROLOL TARTRATE 25 MG TAB PO PRN (14:30)
[2017-03-30] MEDS ORDERED: SODIUM CHLORID 0.9% 500 ML IV PRN (14:30)
[2017-03-30] MEDS ORDERED: POVIDONE IODINE 5% (ANTISEPSIS KIT) 4 APPLICATIONS EACH NARE PRN (14:30)
[2017-03-30] MEDS ORDERED: CHLORHEXIDINE GLUCONATE 2 % 1 PACK (2 CLOTHS) TOPICAL PRN (14:30)
[2017-03-30] MEDS ORDERED: INSULIN HUMAN REGULAR 1,000 UNITS/10 ML VIAL SQ PRN (14:30)
--- NOTE | 2017-03-30 14:35 | EKG ---
Date Performed: 03/30/2017 Time Performed: 06:06:31 PTAGE: 81 years EKG: Sinus rhythm NORMAL ECG PREVIOUS TRACING : 03/29/2017 23.23 Since previous tracing, no significant change noted DOCTOR: Erik Ying Interpretating Date/Time 03/30/2017 14:34:19
--- NOTE | 2017-03-30 14:36 | EKG ---
Date Performed: 03/29/2017 Time Performed: 23:23:30 PTAGE: 81 years EKG: SINUS BRADYCARDIA BORDERLINE ECG PREVIOUS TRACING : 03/29/2017 23.23 Since previous tracing, no significant change noted DOCTOR: Erik Ying Interpretating Date/Time 03/30/2017 14:34:36
--- NOTE | 2017-03-30 14:40 | EKG ---
Date Performed: 03/30/2017 Time Performed: 07:40:02 PTAGE: 81 years EKG: Sinus rhythm NORMAL ECG INTERPRETATION BASED ON A DEFAULT AGE OF 40 YEARS NO PREVIOUS TRACING DOCTOR: Erik Ying Interpretating Date/Time 03/30/2017 14:37:50
--- NOTE | 2017-03-30 15:05 | HHI.PR ---
Immediate Post Op Note Procedure Date: Mar 30, 2017 Pre Op Diagnosis: acute cholecystitis with cholelithiasis Post Op Diagnosis: same Surgeon: Benji Calles MD Motor Room Controller(s): see or sheet Procedure: lap amber Findings: distended gallbladder Complications: none Specimen(s) removed: gallbladder Estimated blood loss: 5cc Anesthesia: General Patient to: PACU Patient Condition: Good Benji Calles MD Mar 30, 2017 15:05
[2017-03-30] MEDS ORDERED: DO NOT ADM ANY ANTICOAGULANT DRUGS PRN (16:28)
[2017-03-30] MEDS: FAMOTIDINE 20 MG TAB PO SCH (20:25)
[2017-03-30] MEDS: ATORVASTATIN 40 MG TAB PO SCH (20:25)
--- NOTE | 2017-03-30 21:56 | MP ---
cc: CHUCK CALLES MD DATE OF SURGERY: 03/30/2017 PREOPERATIVE DIAGNOSIS: Acute cholecystitis and cholelithiasis. POSTOPERATIVE DIAGNOSIS Acute cholecystitis and cholelithiasis. PROCEDURE PERFORMED Laparoscopic cholecystectomy SURGEON Dr. Chuck Calles FURNITURE MANAGER: See OR sheet. ANESTHESIA GETA. IV FLUIDS See anesthesia sheet. ESTIMATED BLOOD LOSS: 5 cc DRAINS: None. COMPLICATIONS: None. WOUND CLASSIFICATION Clean, contaminated. SPECIMENS Gallbladder. FINDINGS: Acutely inflamed distended gallbladder with sludge and gallstones. INDICATIONS: The patient is an 81-year-old male who presents with acute onset right upper quadrant pain. He had a leukocytosis of 20,000. CT scan showing thickened gallbladder with distension and stones, and ultrasound confirming this as well. Decision was made for operative intervention including laparoscopic cholecystectomy. DETAILS OF PROCEDURE: The patient was taken to the operating suite, placed in supine position. He was prepped and draped in usual sterile fashion after induction of general endotracheal anesthesia. Brief time out stating the correct patient, procedure, and surgical site. Attention first directed to the umbilicus where superiorly local anesthetic injected. A small stab pat incision made with an 11-blade. Visiport used to enter the abdomen safely on insufflation, no evidence of injury. Five mm scope placed. Three other ports placed, 12 mm epigastric followed by two right subcostal 5 mm ports. The patient placed in reverse Trendelenburg airplaned to the left. The colon was noted to be draped over the gallbladder. This was mobilized down. The gallbladder noted to be very acutely inflamed with thickening wall and very distended. Endo needle used to aspirate the gallbladder and removal of 170 cc of bile. Gallbladder was grasped and retracted cephalad. [place] grasper used to dissect the cystic duct and cystic artery. These were noted to be the only structures on the gallbladder. The cystic duct was rather large and infundibulum noted to have sludge and stones. Therefore a dome down approach embarked. Using hook electrocautery, the dome down approach was done down to the level of the cystic duct. An Endoloop PDS was used to ligate the cystic duct both proximally and distally and endoshears used to transect this. Also the 5 millimeter clips again used to transect the cystic artery and endoshears used to transect this. Gallbladder was placed in the EndoCatch bag and removed from the epigastric port. Suction irrigation done until the effluent was dry. Electro-bovie cautery used on the gallbladder fossa for hemostasis. Following this pneumoperitoneum was removed, ports were removed. Epigastric incision was closed on the fascia with [id number] 0 Vicryl followed by 4-0 Monocryl on the subcuticulars and sterile dressing. The patient tolerated the procedure well. There were no intraoperative complications. The patient was extubated and taken to PACU. All lap and instrument counts were correct at the end of the procedure. MD HAYDEE Oneill/GORGE /9:02 PM /9:25 PM
[2017-03-31] VITALS (12 sets, daily range): BP systolic 103–147; BP diastolic 55–63; PULSE 58–76; RESP 18–20; TEMP 96.5–98.4; O2SAT 92–96
[2017-03-31] MEDS: PIPERACIL-TAZO 3.375 GM PREMIX 50 ML IV SCH ×3 (04:13→20:39)
[2017-03-31] MEDS: VALSARTAN 160 MG TAB PO SCH (08:30)
[2017-03-31] MEDS: HYDROCHLOROTHIAZIDE 25 MG TAB PO SCH (08:30)
[2017-03-31] MEDS: FAMOTIDINE 20 MG TAB PO SCH ×2 (08:31→20:40)
[2017-03-31] MEDS: PANTOPRAZOLE SOD 20 MG DELAYED RELEASE TAB PO SCH (08:31)
[2017-03-31] MEDS: amLODIPine BESYLATE 5 MG TAB PO SCH (08:31)
--- NOTE | 2017-03-31 08:51 | HHI.PR ---
Subjective Subjective Notes no fevers, pain better, no nausea Objective Vitals/I&O Vital Signs Date Time Temp Pulse Resp B/P (MAP) Pulse Ox O2 Delivery O2 Flow Rate FiO2 03/31/17 08:22 93 21 03/31/17 07:32 98.3 67 20 118/59 (78) 03/30/17 17:00 Room Air 03/30/17 16:30 2 Radiology Last Impressions Gall Bladder Ultrasound 03/30/17 0000 Signed Impressions: Service Date/Time: Thursday, March 30, 2017 02:21 - CONCLUSION: Cholelithiasis. Gallbladder wall is borderline thickened. This can be correlated with any clinical or laboratory findings of cholecystitis. Rick Cabrales MD Abdomen/Pelvis CT 03/30/17 0000 Signed Impressions: Service Date/Time: Thursday, March 30, 2017 01:03 - CONCLUSION: 1. No acute abnormality seen. 2. Numerous colonic diverticula. There is some thickening in the sigmoid region which may be secondary to hypertrophy. Surrounding inflammatory changes not seen. 3. Status post prostatectomy. 4. Multiple focal areas of density within the gallbladder concerning for possible gallstones. 5. 1.9 cm left adrenal gland mass. This is nonspecific. Statistically, it likely representing an adenoma. 6. 3.7 cm focal abdominal aortic aneurysm. Rick Cabrales MD Chest X-Ray 03/29/17 2327 Signed Impressions: Service Date/Time: Wednesday, March 29, 2017 23:35 - CONCLUSION: Normal examination. Rick Cabrales MD CT abdomen and pelvis--- cholelithiasis Gallbladder ultrasound--cholelithiasis and gallbladder wall thickening Abdomen: Other (soft incisional tenderness scant dry blood) A/P Problem List: (1) Acute cholecystitis ICD Codes: K81.0 - Acute cholecystitis Status: Acute (2) Right upper quadrant pain ICD Codes: R10.11 - Right upper quadrant pain Status: Acute (3) Abnormal findings on imaging of biliary tract ICD Codes: R93.2 - Abnormal findings on diagnostic imaging of liver and biliary tract Status: Acute (4) Coronary artery disease ICD Codes: I25.10 - Atherosclerotic heart disease of [place] coronary artery without angina pectoris Status: Chronic (5) Gastroesophageal reflux disease ICD Codes: K21.9 - Gastro-esophageal reflux disease without esophagitis Status: Chronic Assessment and Plan POD 1 Lap amber PLAN doing well advance diet oob pain control d/c planning today dvt ppx Benji Calles MD Mar 31, 2017 08:51
[2017-03-31] MEDS: SODIUM CHLORIDE 0.9% FLUSH 10 ML FLUSH IV FLUSH SCH ×2 (09:00→20:39)
[2017-03-31] MEDS ORDERED: INFLUENZA VIRUS VACCINE (QUADRIVALENT) 0.5 ML SYR IM ONE (10:00)
--- NOTE | 2017-03-31 10:18 | HHI.PR ---
Subjective Remarks Patient says he is feeling ordered today. Reports pain is controlled. Denies any nausea or vomiting. Denies any chest pain or shortness of breath. Still no flatus. No bowel movement. Objective Vital Signs Date Time Temp Pulse Resp B/P (MAP) Pulse Ox O2 Delivery O2 Flow Rate FiO2 03/31/17 08:22 93 21 03/31/17 07:32 98.3 67 20 118/59 (78) 93 03/31/17 04:55 97.9 64 18 108/55 (72) 94 03/31/17 04:00 66 03/31/17 00:42 98.4 65 18 103/55 (71) 92 03/30/17 21:51 98.2 66 18 107/54 (71) 93 03/30/17 18:30 97.3 78 18 128/60 (82) 93 03/30/17 17:00 98.6 79 14 116/58 (77) 96 Room Air 03/30/17 16:45 77 14 128/63 (84) 94 Room Air 03/30/17 16:30 81 14 127/63 (84) 93 Nasal Cannula 2 03/30/17 16:27 98.6 82 14 127/60 (82) 92 Nasal Cannula 4 03/30/17 12:31 97.9 75 20 131/59 (83) 96 I/O 03/30/17 03/30/17 03/30/17 03/31/17 03/31/17 03/31/17 07:00 15:00 23:00 07:00 15:00 23:00 Intake Total 50 ml 1000 ml 480 ml Output Total 50 ml Balance 50 ml 950 ml 480 ml Intake Oral 480 ml IV Total 50 ml Other 1000 ml Output Estimated Blood Loss 50 ml # Voids 1 Result Diagram: 03/29/17234403/29/172344 Objective Remarks GENERAL: Patient lying in bed. Appears comfortable. Alert and oriented 3. SKIN: Warm and dry. HEAD: Normocephalic. EYES: No scleral icterus. No injection or drainage. NECK: Supple, trachea midline. No JVD. CARDIOVASCULAR: Regular rate and rhythm without murmurs, gallops, or rubs. RESPIRATORY: Breath sounds equal bilaterally. No accessory muscle use. GASTROINTESTINAL: Abdomen soft, non-tender, nondistended. Incisions with Steri- Strips intact. MUSCULOSKELETAL: No cyanosis, or edema. BACK: Nontender without obvious deformity. No CVA tenderness. A/P Assessment and Plan Assessment and plan 81-year-old male admitted secondary to acute cholecystitis //POD 1 cholecystectomy -Postoperative management as per surgical service. -Await return of bowel function. -Continue antibiotics. Leukocytosis 20 yesterday. Repeat labs. //Coronary artery disease Beta gregory. Continue aspirin at home. //History of prostate cancer Continue to monitor as an outpatient //Hypertension Surgical acceptable. Continue baseline treatments Follow blood pressures As needed IV enalapril for when patient is nothing by mouth //Hyperlipidemia Continue baseline treatment Follows in outpatient //Gastroesophageal reflux disease Continue baseline treatment with PPI //Increased Dr. requirement. Patient satting 93 chest x-ray. Start Acapella and incentive spirometry. //DVT prophylaxis SCDs Discharge Planning Pending repeat labs today and passed flatus. also pending surgery clearance. Marco Porter MD Mar 31, 2017 10:18
--- NOTE | 2017-03-31 11:17 | RADRPT ---
EXAM DATE/TIME: 03/31/2017 10:36 [facility] COMPARISON: CHEST SINGLE AP, March 29, 2017, 23:35. INDICATIONS : Short of breath. Evaluate diaphragm. MEDICAL HISTORY : Hypercholesterolemia. Hypertension. Gastroesophageal reflux disease. hearing aids. SURGICAL HISTORY : Appendectomy. Cardiac stent. Prostatectomy. ENCOUNTER: Subsequent ACUITY: 1 day PAIN SCORE: 0/10 LOCATION: Bilateral chest FINDINGS: A single view of the chest demonstrates the lungs to be symmetrically aerated with minimal amount of linear atelectatic changes in both lower lung hills, right worse than left. No confluent infiltrates or effusions. Heart size is normal. Degenerative spurring of the dorsal spine. CONCLUSION: 1. Interval development of bibasilar linear atelectatic changes, right worse than left. 2. Otherwise, no confluent infiltrate or effusion. Win Gomez MD on March 31, 2017 at 11:14 Board Certified Radiologist. This report was verified electronically.
[2017-03-31 15:55] LABS: BASOPHIL % 0.3 % (0.0-2.0); EOSINOPHIL # 0.1 TH/MM3 (0-0.4); EOSINOPHIL % 0.6 % (0.0-4.0); HEMATOCRIT 37.6 % (39.0-51.0); HEMO FLAGS DIFF FINAL; LYMPH % 5.4 % (9.0-44.0); LYMPHOCYTE # 0.9 TH/MM3 (1.0-4.8); MEAN CELL VOLUME 91.5 FL (80.0-100.0); MEAN CORPUSCULAR HEMOGLOBIN 31.4 PG (27.0-34.0); MEAN CORPUSCULAR HGB CONC 34.4 % (32.0-36.0); MONO % 11.3 % (0.0-8.0); NEUT % 82.4 % (16.0-70.0); PLATELET COUNT 154 TH/MM3 (150-450); RED BLOOD COUNT 4.11 MIL/MM3 (4.50-5.90); RED CELL DISTRIBUTION WIDTH 13.8 % (11.6-17.2)
[2017-03-31] MEDS ORDERED: AMOX875T2 PO (16:18)
[2017-03-31 16:21] LABS: ALT (GPT) 28 U/L (12-78); ANION GAP 7 MEQ/L (5-15); AST (GOT) 24 U/L (15-37); BICARBONATE 25.9 MEQ/L (21.0-32.0); BLOOD UREA NITROGEN 31 MG/DL (7-18); CHLORIDE 103 MEQ/L (98-107); GLOMERULAR FILTRATION RATE 43 ML/MIN (>89); POTASSIUM 3.7 MEQ/L (3.5-5.1); SODIUM (NA) 136 MEQ/L (136-145)
[2017-03-31 16:24] LABS: ALKALINE PHOSPHATASE 65 U/L (45-117); TOTAL BILIRUBIN ADULT 1.4 MG/DL (0.2-1.0)
[2017-03-31] MEDS ORDERED: SODIUM CHLORID 0.9% 500 ML INJ 500 ML IV ONE (16:45)
[2017-03-31] MEDS: NS + KCL 20 MEQ INJ 1,000 ML IV SCH (17:10)
[2017-03-31] MEDS: ATORVASTATIN 40 MG TAB PO SCH (20:40)
[2017-03-31] MEDS ORDERED: MAGNESIUM HYDROXIDE SUSP 30 ML CUP PO ONE (21:00)
[2017-04-01] VITALS (8 sets, daily range): BP systolic 128–143; BP diastolic 59–77; PULSE 51–78; RESP 16–18; TEMP 97.5–97.9; O2SAT 94–97
[2017-04-01] MEDS: NS + KCL 20 MEQ INJ 1,000 ML IV SCH (05:12)
[2017-04-01] MEDS: PIPERACIL-TAZO 3.375 GM PREMIX 50 ML IV SCH (05:12)
[2017-04-01 08:13] LABS: AUTOMATED NEUTROPHIL # 8.9 TH/MM3 (1.8-7.7); BASOPHIL # 0.1 TH/MM3 (0-0.2); BASOPHIL % 0.5 % (0.0-2.0); EOSINOPHIL # 0.3 TH/MM3 (0-0.4); EOSINOPHIL % 2.2 % (0.0-4.0); HEMATOCRIT 37.6 % (39.0-51.0); HEMO FLAGS DIFF FINAL; LYMPH % 12.6 % (9.0-44.0); LYMPHOCYTE # 1.5 TH/MM3 (1.0-4.8); MEAN CELL VOLUME 91.4 FL (80.0-100.0); MEAN CORPUSCULAR HEMOGLOBIN 31.3 PG (27.0-34.0); MEAN CORPUSCULAR HGB CONC 34.3 % (32.0-36.0); MONO % 9.3 % (0.0-8.0); NEUT % 75.4 % (16.0-70.0); PLATELET COUNT 150 TH/MM3 (150-450); RED BLOOD COUNT 4.12 MIL/MM3 (4.50-5.90); RED CELL DISTRIBUTION WIDTH 13.8 % (11.6-17.2); WHITE BLOOD COUNT 11.8 TH/MM3 (4.0-11.0)
[2017-04-01 08:44] LABS: BICARBONATE 26.2 MEQ/L (21.0-32.0); MAGNESIUM 2.6 MG/DL (1.5-2.5)
[2017-04-01] MEDS: HYDROCHLOROTHIAZIDE 25 MG TAB PO SCH (08:59)
[2017-04-01] MEDS: amLODIPine BESYLATE 5 MG TAB PO SCH (08:59)
[2017-04-01] MEDS: VALSARTAN 160 MG TAB PO SCH (08:59)
[2017-04-01] MEDS: FAMOTIDINE 20 MG TAB PO SCH (08:59)
[2017-04-01] MEDS: PANTOPRAZOLE SOD 20 MG DELAYED RELEASE TAB PO SCH (08:59)
[2017-04-01] MEDS: ASPIRIN 325 MG TAB PO SCH (08:59)
[2017-04-01] MEDS: SODIUM CHLORIDE 0.9% FLUSH 10 ML FLUSH IV FLUSH SCH (09:00)
[2017-04-01] MEDS ORDERED: VALS160T4 PO (09:24)
[2017-04-01] MEDS ORDERED: SODIUM CHLOR 0.9% 250 ML INJ 250 ML IV ONE (09:30)
--- NOTE | 2017-04-01 09:34 | HHI.DS ---
Discharge Summary Admission Date Mar 30, 2017 at 03:12 Discharge Date: Apr 01, 2017 Admitting Diagnosis Chest Pain (1) Coronary artery disease ICD Code: I25.10 - Atherosclerotic heart disease of [place] coronary artery without angina pectoris Status: Chronic (2) Hyperlipidemia ICD Code: E78.5 - Hyperlipidemia, unspecified (3) Gastroesophageal reflux disease ICD Code: K21.9 - Gastro-esophageal reflux disease without esophagitis Status: Chronic (4) Hypertension ICD Code: I10 - Essential (primary) hypertension (5) Acute cholecystitis ICD Code: K81.0 - Acute cholecystitis Status: Acute (6) Chest pain ICD Code: R07.9 - Chest pain, unspecified Status: Acute Procedures Laparoscopic cholecystectomy Brief History - From Admission Mr. Boles is an 81-year-old male. He is here today secondary to an epigastric pain which onset yesterday around 5 PM. The pain was intense and sharp in nature. He was concerned that it was possibly his heart. He had a negative cardiac workup. In the meanwhile the pain has transitioned to the right upper quadrant. Imaging shows cholecystitis. Cholecystectomy planned for later today. At baseline this patient has a history of prostate cancer, hypertension, hyperlipidemia, gastroesophageal she'll reflux disease, and coronary artery disease. He had a stent in 2003. He does not have issues with chronic angina. I feel at this point given negative cardiac workup she is medically stable for surgery and medically cleared for surgery. CBC/BMP: 04/01/17 0627 04/01/17 0627 Significant Findings Laboratory Tests Test 03/29/17 23:45 03/30/17 04:40 03/30/17 07:30 03/31/17 14:50 White Blood Count 20.3 TH/MM3 (4.0-11.0) 17.0 TH/MM3 (4.0-11.0) Neutrophils (%) (Auto) 71.2 % (16.0-70.0) 82.4 % (16.0-70.0) Lymphocytes (%) (Auto) 8.9 % (9.0-44.0) 5.4 % (9.0-44.0) Monocytes (%) (Auto) 10.6 % (0.0-8.0) 11.3 % (0.0-8.0) Eosinophils (%) (Auto) 8.7 % (0.0-4.0) Neutrophils # (Auto) 14.5 TH/MM3 (1.8-7.7) 14.0 TH/MM3 (1.8-7.7) Monocytes # (Auto) 2.1 TH/MM3 (0-0.9) 1.9 TH/MM3 (0-0.9) Eosinophils # (Auto) 1.8 TH/MM3 (0-0.4) Blood Urea Nitrogen 23 MG/DL (7-18) 31 MG/DL (7-18) Creatinine 1.46 MG/DL (0.60-1.30) 1.57 MG/DL (0.60-1.30) Random Glucose 176 MG/DL (74-106) 71 MG/DL (74-106) Total Bilirubin 1.3 MG/DL (0.2-1.0) 1.3 MG/DL (0.2-1.0) 1.4 MG/DL (0.2-1.0) Estimat Glomerular Filtration Rate 46 ML/MIN (>89) 43 ML/MIN (>89) Troponin I LESS THAN 0.02 NG/ML LESS THAN 0.02 NG/ML LESS THAN 0.02 NG/ML Direct Bilirubin 0.4 MG/DL (0.0-0.2) Indirect Bilirubin 0.9 MG/DL (0.0-0.8) Aspartate Amino Transf (AST/SGOT) 12 U/L (15-37) Total Creatine Kinase 37 U/L (39-308) Total Protein 5.7 GM/DL (6.4-8.2) Albumin 2.9 GM/DL (3.4-5.0) 3.0 GM/DL (3.4-5.0) Red Blood Count 4.11 MIL/MM3 (4.50-5.90) Hemoglobin 12.9 GM/DL (13.0-17.0) Hematocrit 37.6 % (39.0-51.0) Lymphocytes # (Auto) 0.9 TH/MM3 (1.0-4.8) Calcium Level 8.3 MG/DL (8.5-10.1) Test 04/01/17 06:27 White Blood Count 11.8 TH/MM3 (4.0-11.0) Red Blood Count 4.12 MIL/MM3 (4.50-5.90) Hemoglobin 12.9 GM/DL (13.0-17.0) Hematocrit 37.6 % (39.0-51.0) Neutrophils (%) (Auto) 75.4 % (16.0-70.0) Monocytes (%) (Auto) 9.3 % (0.0-8.0) Neutrophils # (Auto) 8.9 TH/MM3 (1.8-7.7) Monocytes # (Auto) 1.1 TH/MM3 (0-0.9) Blood Urea Nitrogen 27 MG/DL (7-18) Creatinine 1.41 MG/DL (0.60-1.30) Random Glucose 124 MG/DL (74-106) Albumin 2.9 GM/DL (3.4-5.0) Phosphorus Level 1.8 MG/DL (2.5-4.9) Magnesium Level 2.6 MG/DL (1.5-2.5) Estimat Glomerular Filtration Rate 48 ML/MIN (>89) Imaging Last Impressions Chest X-Ray 03/31/17 0000 Signed Impressions: Service Date/Time: Friday, March 31, 2017 10:36 - CONCLUSION: 1. Interval development of bibasilar linear atelectatic changes, right worse than left. 2. Otherwise, no confluent infiltrate or effusion. Win Gomez MD Gall Bladder Ultrasound 03/30/17 0000 Signed Impressions: Service Date/Time: Thursday, March 30, 2017 02:21 - CONCLUSION: Cholelithiasis. Gallbladder wall is borderline thickened. This can be correlated with any clinical or laboratory findings of cholecystitis. Rick Cabrales MD Abdomen/Pelvis CT 03/30/17 0000 Signed Impressions: Service Date/Time: Thursday, March 30, 2017 01:03 - CONCLUSION: 1. No acute abnormality seen. 2. Numerous colonic diverticula. There is some thickening in the sigmoid region which may be secondary to hypertrophy. Surrounding inflammatory changes not seen. 3. Status post prostatectomy. 4. Multiple focal areas of density within the gallbladder concerning for possible gallstones. 5. 1.9 cm left adrenal gland mass. This is nonspecific. Statistically, it likely representing an adenoma. 6. 3.7 cm focal abdominal aortic aneurysm. Rick Cabrales MD Hospital Course She was admitted with white count of 20, findings of cholecystitis on imaging above. Cardiology was consulted, clear patient for surgery. Patient underwent laparoscopic cholecystectomy. Creatinine 1.4 on admission, trended up to 1.5, however improved on day of discharge. Patient tolerating diet, fluids. Passing flatus. Will be discharged home with close follow-up primary care, surgery. Patient's home blood pressure medication as been decreased as below. Vision also with incidental finding of 3.7 cm focal abdominal aortic aneurysm. Follow-up with primary care. discussed with patient. Patient conveys understanding. For problem-based summary from most recent progress note, please see below. Assessment and plan 81-year-old male admitted secondary to acute cholecystitis //POD 1 cholecystectomy -Postoperative management as per surgical service. -Await return of bowel function. -Continue antibiotics. Leukocytosis 20 yesterday. Repeat labs. //Coronary artery disease Beta gregory. Continue aspirin at home. //History of prostate cancer Continue to monitor as an outpatient //Hypertension Surgical acceptable. Continue baseline treatments Follow blood pressures As needed IV enalapril for when patient is nothing by mouth //Hyperlipidemia Continue baseline treatment Follows in outpatient //Gastroesophageal reflux disease Continue baseline treatment with PPI //Increased [place] requirement. Patient satting 93 chest x-ray. Start Acapella and incentive spirometry. //DVT prophylaxis SCDs Discharge Planning Pending repeat labs today and passed flatus. also pending surgery clearance. Blood pressure acceptable. We will decrease losartan, hydrochlorothiazide at home. Consult with primary care. Pt Condition on Discharge: Good Discharge Disposition: Discharge Home Discharge Time: > 30 minutes Discharge Instructions DIET: Follow Instructions for: Heart Healthy Diet Activities you can perform: Regular-No Restrictions Follow up Referrals: PCP Follow-up - 1 Week Surgical - 1 Week with Benji Calles MD New Medications: Amoxicillin-Clavulanate (Amoxicillin-Clavulanate) 875-125 mg Tab 875 MG PO BID for Infection for 10 Days, TAB 0 Refills not for use in CrCl <30 mL/minute Valsartan-Hydrochlorothiazide (Valsartan-Hydrochlorothiazide) 160-12.5 Mg Tab 1 TAB PO DAILY for Blood Pressure Management, #30 TAB 0 Refills Continued Medications: Amlodipine (Amlodipine) 5 Mg Tab 5 MG PO DAILY for Blood Pressure Management, #30 TAB 0 Refills Atorvastatin (Atorvastatin) 40 Mg Tab 40 MG PO HS for Cholesterol Management, #30 TAB 0 Refills Omeprazole (Omeprazole) 20 Mg Tab 20 MG PO DAILY, #30 TAB 0 Refills Discontinued Medications: Clonidine (Clonidine) 0.1 Mg Tab 0.1 MG PO BID for Blood Pressure Management, #60 TAB 0 Refills Valsartan-Hydrochlorothiazide (Valsartan-Hydrochlorothiazide) 320-25 Mg Tab 1 TAB PO DAILY for Blood Pressure Management, #30 TAB 0 Refills Marco Porter MD Apr 01, 2017 09:34
[2017-04-01] MEDS ORDERED: SODIUM PHOSPHATE INJ 15 MMOL in SODIUM CHLORIDE 0.9% INJ 150 ML IV ONE (10:00)
--- NOTE | 2017-04-01 11:04 | HHI.PR ---
Subjective Subjective Notes Resting in bed No issues Ready to go home Objective Vitals/I&O Vital Signs Date Time Temp Pulse Resp B/P (MAP) Pulse Ox O2 Delivery O2 Flow Rate FiO2 04/01/17 09:04 94 04/01/17 07:57 55 04/01/17 07:26 97.9 16 128/59 (82) 03/31/17 08:22 21 03/30/17 17:00 Room Air 03/30/17 16:30 2 Labs Laboratory Tests Test 03/31/17 14:50 04/01/17 06:27 White Blood Count 17.0 11.8 Red Blood Count 4.11 4.12 Hemoglobin 12.9 12.9 Hematocrit 37.6 37.6 Mean Corpuscular Volume 91.5 91.4 Mean Corpuscular Hemoglobin 31.4 31.3 Mean Corpuscular Hemoglobin Concent 34.4 34.3 Red Cell Distribution Width 13.8 13.8 Platelet Count 154 150 Mean Platelet Volume 9.8 10.1 Neutrophils (%) (Auto) 82.4 75.4 Lymphocytes (%) (Auto) 5.4 12.6 Monocytes (%) (Auto) 11.3 9.3 Eosinophils (%) (Auto) 0.6 2.2 Basophils (%) (Auto) 0.3 0.5 Neutrophils # (Auto) 14.0 8.9 Lymphocytes # (Auto) 0.9 1.5 Monocytes # (Auto) 1.9 1.1 Eosinophils # (Auto) 0.1 0.3 Basophils # (Auto) 0.0 0.1 CBC Comment DIFF FINAL DIFF FINAL Differential Comment Blood Urea Nitrogen 31 27 Creatinine 1.57 1.41 Random Glucose 71 124 Total Protein 6.6 Albumin 3.0 2.9 Calcium Level 8.3 8.5 Alkaline Phosphatase 65 Aspartate Amino Transf (AST/SGOT) 24 Alanine Aminotransferase (ALT/SGPT) 28 Total Bilirubin 1.4 Sodium Level 136 140 Potassium Level 3.7 4.0 Chloride Level 103 106 Carbon Dioxide Level 25.9 26.2 Anion Gap 7 8 Estimat Glomerular Filtration Rate 43 48 Phosphorus Level 1.8 Magnesium Level 2.6 Radiology Last Impressions Gall Bladder Ultrasound 03/30/17 0000 Signed Impressions: Service Date/Time: Thursday, March 30, 2017 02:21 - CONCLUSION: Cholelithiasis. Gallbladder wall is borderline thickened. This can be correlated with any clinical or laboratory findings of cholecystitis. Rick Cabrales MD Abdomen/Pelvis CT 03/30/17 0000 Signed Impressions: Service Date/Time: Thursday, March 30, 2017 01:03 - CONCLUSION: 1. No acute abnormality seen. 2. Numerous colonic diverticula. There is some thickening in the sigmoid region which may be secondary to hypertrophy. Surrounding inflammatory changes not seen. 3. Status post prostatectomy. 4. Multiple focal areas of density within the gallbladder concerning for possible gallstones. 5. 1.9 cm left adrenal gland mass. This is nonspecific. Statistically, it likely representing an adenoma. 6. 3.7 cm focal abdominal aortic aneurysm. Rick Cabrales MD Chest X-Ray 03/29/17 2327 Signed Impressions: Service Date/Time: Wednesday, March 29, 2017 23:35 - CONCLUSION: Normal examination. Rick Cabrales MD CT abdomen and pelvis--- cholelithiasis Gallbladder ultrasound--cholelithiasis and gallbladder wall thickening Cardiovascular: Regular Lungs: Clear Abdomen: Other (lap sites c/d/i; minimal bloody drainage on umbilicus steri strips ) Extremities: No edema A/P Problem List: (1) Acute cholecystitis ICD Codes: K81.0 - Acute cholecystitis Status: Acute (2) Right upper quadrant pain ICD Codes: R10.11 - Right upper quadrant pain Status: Acute (3) Abnormal findings on imaging of biliary tract ICD Codes: R93.2 - Abnormal findings on diagnostic imaging of liver and biliary tract Status: Acute (4) Coronary artery disease ICD Codes: I25.10 - Atherosclerotic heart disease of [place] coronary artery without angina pectoris Status: Chronic (5) Gastroesophageal reflux disease ICD Codes: K21.9 - Gastro-esophageal reflux disease without esophagitis Status: Chronic Assessment and Plan 81 year old male POD2 lap amber -Tolerating healthy healthy diet -Pain control -GS clear for DC -Follow up with Dr. Calles in 1 week Attending Statement patient seen at bedside doing well ok for d/c Attestation The exam, history, and the medical decision-making described in the above note were completed with the assistance of the mid-level provider. I reviewed and agree with the findings presented. I attest that I had a [id number] encounter with the patient on the same day, and personally performed and documented my assessment and findings in the medical record. Lexi Anderson Apr 01, 2017 11:04 Benji Calles MD Apr 06, 2017 04:59
== END 2017-04-01 14:01 | disposition home or self-care (01) ==
LOC: NEPE 23:10 → NEDA 03-30 03:12 → EDBD 03-30 03:12 → NEPFCDU 03-30 04:04
PROVIDERS: ADMIT Internal Medicine; ATTEND Internal Medicine
DX: K80.00 Calculus of gallbladder with acute cholecystitis without obstruction (principal); K21.9 Gastro-esophageal reflux disease without esophagitis; I25.10 Atherosclerotic heart disease of native coronary artery without angina pectoris; I10 Essential (primary) hypertension; E78.5 Hyperlipidemia, unspecified; R94.31 Abnormal electrocardiogram [ECG] [EKG]; I71.4 Abdominal aortic aneurysm, without rupture; H91.90 Unspecified hearing loss, unspecified ear; Z95.5 Presence of coronary angioplasty implant and graft; Z85.46 Personal history of malignant neoplasm of prostate; Z87.891 Personal history of nicotine dependence
CPT/HCPCS: 00790; 47562; 71010; 74177; 76705; 80053; 80069; 80076; 82550; 83690; 83735; 84484; 85025; 85610; 85730; 88304; 93005; 94150; 94667; 96365; 96366; 96368; 96375; 97161; 99285; G0378; G8987; G8988; J0131; J1100; J2270; J2405; J2543; J2710; J3010; J3480; J7040; J7050; J7120; Q9967